=== PATIENT | female | born 1965 | race Caucasian/White ===

== ENCOUNTER 2022-09-22 09:13 | Emergency (ER) | payer OTHER ==
[~2022-09-22] VITALS: Ht 167.6 cm; Wt 68.0 kg
[2022-09-22 09:17] VITALS: BP 121/69
[2022-09-22] MEDS ORDERED: ONDA4TAB11 PO (10:13)
[2022-09-22] MEDS ORDERED: PROT40 MT (10:13)
== END 2022-09-22 10:25 | disposition home or self-care (01) ==
LOC: ER 09:13
DX: K21.9 Gastro-esophageal reflux disease without esophagitis (principal); Z85.41 Personal history of malignant neoplasm of cervix uteri; Z92.21 Personal history of antineoplastic chemotherapy; Z90.710 Acquired absence of both cervix and uterus
CPT/HCPCS: 99283